=== PATIENT | male | born 1955 | race Caucasian/White ===

== ENCOUNTER 2023-02-26 13:53 | Emergency (ER) | payer MEDICARE ==
[2023-02-26 15:03] LABS: BASOPHILS ABSOLUTE AUTO 0.04 K/uL (0.00-0.10); BASOPHILS PERCENT AUTO 0.3 % (0.1-1.3); EOSINOPHILS PERCENT AUTO 0.8 % (0.0-5.4); HEMATOCRIT 44.6 % (38.4-49.7); HEMOGLOBIN 15.5 g/dL (12.9-16.9); IMMATURE GRAN ABSOLUTE AUTO 0.04 K/uL (0.00-0.23); IMMATURE GRAN PERCENT AUTO 0.3 % (0.0-0.7); LYMPHOCYTES ABSOLUTE AUTO 2.44 K/uL (0.8-3.3); LYMPHOCYTES PERCENT AUTO 19.2 % (11.4-47.7); MEAN CORPUSCULAR HEMOGLOBIN 31.6 pg (31.6-35.5); MEAN CORPUSCULAR HGB CONC 34.8 g/dL (31.6-35.5); MONOCYTES ABSOLUTE AUTO 1.14 K/uL (0.20-0.90); NEUTROPHILS ABSOLUTE AUTO 8.97 K/uL (1.0-7.6); NEUTROPHILS PERCENT AUTO 70.4 % (40.0-78.1); PLATELET COUNT,PLT 340 K/uL (130-375); WHITE BLOOD CELL COUNT,WBC 12.7 K/uL (3.2-11.0)
[2023-02-26 15:24] LABS: CALCIUM 9.1 mg/dL (8.5-10.1); CREATININE 1.2 mg/dL (0.8-1.3); EST CRCL DRUG DOSING (CG) 58.92 mL/min; POTASSIUM,K 5.1 mmol/L (3.6-5.2)
[2023-02-26 15:27] LABS: ANION GAP 11.1 mmol/L (5.0-14.0)
[2023-02-26] MEDS ORDERED: Amoxicillin/Clavulanate K 875-125 MG Tab PO ONE (17:53)
== END 2023-02-26 18:11 | disposition home or self-care (01) ==
LOC: JP.ED 13:53
DX: L08.9 Local infection of the skin and subcutaneous tissue, unspecified (principal); Z72.0 Tobacco use
CPT/HCPCS: 36415; 80048; 84484; 84550; 85025; 93005; 99284; A9270; 93010; 99283